=== PATIENT | female | born 1985 | race Caucasian/White ===

== ENCOUNTER 2025-01-28 14:02 | Outpatient (AMB) | payer MEDICAID, SELFPAY ==
[2025-01-28 14:27] VITALS: BP 121/79; PULSE 72; RESP 14; TEMP 36.6; O2SAT 99; BMI 32.8
--- NOTE | 2025-01-28 14:27 | AMB.OBINITIA ---
Vital Signs 01/28/25 14:27 Height 1.57 m Height Method Stated Weight 81.42 kg Weight Measurement Method Standing Scale BMI 32.8 BP 121/79 Blood Pressure Source Automatic Cuff Blood Pressure Location Left Upper Arm Position Sitting Respiration 14 Pulse 72 Pulse Source Monitor Temp 97.8 F Temp Source Oral Pulse Oximetry (%) 99 Oxygen Delivery Method Room Air Allergies/Home Meds Allergies & Medications Allergies Penicillins Allergy (Verified 01/28/25 14:28) Hives Medication Reconciliation vitamins-iron fumarate 66 mg iron-folic acid 1 mg tablet tab PO 01/28/25 [History Confirmed 01/28/25] vits no.126-ferrous fum 28 mg iron-folic acid 800 mcg tablet (Classic ) 1 tab PO DAILY 90 days #90 tabs 01/28/25 [Rx] Intake Visit Data Collection New Patient or Established: Established Patient (seen at [facility] within 3 years) Reason for Visit:: INITIAL CARE Seen by Clinical Staff ONLY (RN/MA): No Assembler Crimper Required: No Do You Feel Safe at Home: Yes Authorities Contacted: N/A PCP or OBGYN visit in last 3 months: No Hx Now: Yes Are you currently on any form of Control: No Last menstrual period: 11/21/24 Pain Present Currently: No Pain Scale Used: Piedra-Garcia/Numerical Pain scale:: 0 Smoking Status Smoking Status: Never smoker Immunizations Flu Vaccine in the Last 12 Months: Yes Flu Vaccine Exclusion Criteria: Already Received Questionnaires Covid-19 Vaccine Questionnaire Has patient been vacinated for Covid-19 Have you been vacinated for Covid-19: Yes PHQ-9 PHQ-2 Over the last 2 weeks, how often have you been bothered by any of the following problems? 1. Little interest or pleasure in doing things: not at all 2. Feeling down, depressed, or hopeless: not at all Total score: 0 PHQ-9 3. Trouble falling or staying asleep, or sleeping too much: Not at all 4. Feeling tired or having little energy: Not at all 5. Poor appetite or overeating: Not at all 6. Feeling bad about yourself - or that you are a failure or have let yourself or your family down: Not at all 7. Trouble concentrating on things, such as reading the newspaper or watching television: Not at all 8. Moving or speaking so slowly that other people could have noticed? - Or the opposite - being so fidgety or restless that you have been moving around a lot more than usual: not at all 9. Thoughts that you would be better off or of hurting yourself in some way: Not at all Total score: 0 If you checked off any problems, how difficult have these problems made it for you to do your work, take care of things at home, or get along with other people?: not difficult at all Source: Developed by Drs. Js Zhang, Leonor Phillips, Ken Gabriel and colleagues, with an educational gale from [employer]. Depression screen completed yes Social History Living Situation History Marital Status: Lives With: Family Housing: House Tobacco History Smoking Status: Never smoker Second Hand Smoke Exposure: No Alcohol History Alcohol Intake: Never Domestic Abuse History Do You Feel Safe at Home: Yes History of Present Illness HPI Narrative ?39 Years old G?3P?2at gestational age?9.5 weeks based on last menstrual period of dated?.11/21/2024 No complaints so far Here for first visit LPS 2 years ago LMP 11/21/2024/ not sure Ultrasound not yet medical problems preexisting DM for 1.5 years , last 2 months on diet only / AMA Allergies PCN Hives Surgical history Tonsils social history none OB Ultrasound OB Ultrasound Ultrasound technique: transabdominal Gestational sac assessment: Presence, location, size, shape: IUP / Seen pole c/w 9 weeks on CRL and GS but cannot see a heart beat COPY READER: Past Medical History Past Medical History: No Hx Neurological Disorders, No Hx Cardiac Disorders and Yes Hx Diabetes Mellitus Type 2 OB Initial Visit OB Flowsheet OB Flowsheet Initial Weight: Not Recorded Date <del>?</del> EGA Weight BP Alb Glu CTX Pres Fundal ht FHR Mov Dilation Station Effacement Hx Notes Visit Note 01/28/25 <del>?</del> 9w 5d 81.42 kg 121/79 Menstrual History Menstrual reliability: definite Flow: normal Menstrual regularity: regular Monthly: Yes On control pills at conception: No Associated symptoms (LMP): Reports fatigue OB History : 3 Para: 2 # of Living Children: 2 Delivery History 1st : Child's name: CHULA date: 12/20/04 sex: male Gestational age at delivery (weeks): 38 Delivery type: vaginal Delivery complications: NONE History of depression before or after : No 2nd : Child's name: YOLY date: 07/27/11 sex: male Gestational age at delivery (weeks): 40 Delivery type: vaginal Delivery complications: NONE History of depression before or after : No Infection History & Risk Evaluation History of STDs: none Genetic Screening & History Genetic Screening/Teratology Counseling - Includes patient, baby's father, or anyone in either family with: 1. Patient's age 35 years or older as of estimated date of delivery: Yes 2. Thalassemia (Armenian, Burmese, Mediterranean, or Background); MCV less than 80: No 3. Neural Tube Defect (Meningomyelocele, Spina Bifida, or Anencephaly): No 4. Congenital Heart Defect: No 5. Down Syndrome: No 6. Kodi-Sachs (Ashkenazi Samaritan, Cajun, [place]): No 7. Moe Disease (Ashkenazi Samaritan): No 8. Familial Dysautonomia (Ashkenazi Samaritan): No 9. Sickle Cell Disease or Trait (): No 10. Hemophilia or other blood disorders: No 11. Muscular Dystrophy: No 12. Cystic Fibrosis: No 13. Katy's Chorea: No 14. Mental Retardation/Autism: No 15. Other inherited genetic or chromosomal disorder: No 16. Maternal Metabolic Disorder (EG,TYPE 1 Diabetes, PKU): No 17. Patient or baby's father had a child with defects not listed above: No 18. Recurrent loss or a stillbirth: No 19. Medications (including supplements, vitamins, herbs or otc drugs)/illicit/recreational drugs/alcohol since last menstrual period: No 20. Any other: No Infection History 1. Live with someone with TB or exposed to TB: No 2. Rash or viral illness since last menstrual period: No 3. Hepatitis B,C: No Other (see comments) Source: [employer] Review of Systems Constitutional Constitutional: Reports fatigue Endocrine Endocrine: Reports fatigue Office Procedures OBC Clinic LOC & Office Proc's Nursing/Assessment Patient Status: Established Patient OB Clinic Nursing Assessment: Medication Reconciliation, Update PMH in EMR and Vital Signs OB Clinic Coordination of Care: AMA, Complex Care and Chronic Disease 1-5, Consent,records obtained, informed consent, Education Simp Pt/Fam, 1 Ins Authorization, Lab and Imaging orders, Results/Orders obtained and Staff clarify orders Special Needs: Heart tones Established Patient Charge Established Patient Point Assignment: 170 Established Patient Point Charge: EP Level 5 (160-above) Assessment & Plan Diagnosis / Problem List (1) : Status: Acute Qualifiers: Weeks of gestation: 9 weeks Qualified Code(s): Z3A.09 - 9 weeks gestation of (2) Advanced maternal age (AMA), 40 years or greater: Status: Acute (3) Pre-existing diabetes mellitus affecting in first trimester, antepartum: Status: Acute (4) Threatened : Status: Acute
== END 2025-01-28 15:11 | disposition home or self-care (01) ==
LOC: HODSOBC 14:02
PROVIDERS: PCP Family Medicine; Referring Provider Family Medicine; Supervising Provider Obstetrics & Gynecology; Visit Provider Obstetrics & Gynecology
DX: O09.521 Supervision of elderly multigravida, first trimester (principal); O09.891 Supervision of other high risk pregnancies, first trimester; O20.0 Threatened abortion; O24.811 Other pre-existing diabetes mellitus in pregnancy, first trimester; Z3A.09 9 weeks gestation of pregnancy; Z88.0 Allergy status to penicillin
CPT/HCPCS: 99215; G0463

== ENCOUNTER 2025-01-30 19:13 | Emergency (ER) | payer MEDICAID, SELFPAY ==
[2025-01-30 19:14] VITALS: BMI 31.6
[2025-01-30 19:22] VITALS: BP 158/95; PULSE 88; RESP 16; TEMP 36.8; O2SAT 98
--- NOTE | 2025-01-30 19:35 | XR_ITS ---
Examination: Complete OB ultrasound, less than 14 weeks, transabdominal Date and time of exam: January 30, 2025, 2012 hours INDICATIONS: Vaginal bleeding and pelvic pain today Technique: Obstetrical ultrasound images less than 14 weeks performed via transabdominal imaging Findings: A normal shaped single intrauterine gestation is present in the uterus. CRL 2.8 cm corresponds to 9 weeks 4 days gestational age Cardiac motion 167 bpm Subchorionic hemorrhage 21 x 19 x 16 mm Ultrasonographic survey of visible structures unremarkable. Amniotic fluid volume appears appropriate for this estimated gestational age. Right ovary 4.1 cm arterial flow Left ovary obscured by bowel gas IMPRESSION: Viable intrauterine gestation 9 weeks 4 days Recommend short-term follow-up given the subchorionic hemorrhage.
--- NOTE | 2025-01-30 19:35 | PD.EDRME ---
Rapid Medical Screening Exam [facility] Arrival date/time: 01/30/25 19:13 39F at approximately 9 weeks and with no significant PMH presents to ED with several days of pelvic pain and 1 day of vaginal spotting/bleeding. Chief Complaint: Vaginal Bleeding Vital signs: Vital Signs Temperature 98.2 F 01/30/25 19:22 Pulse Rate 88 01/30/25 19:22 Respiratory Rate 16 01/30/25 19:22 Blood Pressure 158/95 H 01/30/25 19:22 Pulse Oximetry (%) 98 01/30/25 19:22 Oxygen Delivery Method Room Air 01/30/25 19:22 Exam: Anxious Clinical Impression: miscarriage vs vaginal bleeding vs vs subchorionic hemorrhage
[2025-01-30 20:10] LABS: Basophils # (Auto) 0.1 Thou/mm3 (0.0-0.2); Basophils % (Auto) 0 % (0-2.5); Eosinophils # (Auto) 0.3 Thou/mm3 (0.0-0.5); Eosinophils % (Auto) 2 % (0-10); Hematocrit 41.2 % (36.0-46.0); Hemoglobin 13.2 g/dL (12.0-16.0); Immature Granulocytes Auto 0.06 Thou/mm3 (0.00-0.00); Lymphocytes # (Auto) 3.1 Thou/mm3 (1.0-4.8); Lymphocytes % (Auto) 23 % (10-50); Mean Corpuscular HGB Conc 32.0 g/dl (31.0-37.0); Mean Corpuscular Hemoglobin 27.0 pg (25.0-35.0); Mean Corpuscular Volume 84 fL (80-100); Monocytes # (Auto) 0.6 Thou/mm3 (0.0-0.8); Monocytes % (Auto) 5 % (0-12); Neutrophils # (Auto) 9.1 Thou/mm3 (1.8-7.7); Neutrophils % (Auto) 70 % (37-80); Nucleated Red Blood Cell # 0.00 Thou/mm3 (0.00-0.00); Nucleated Red Blood Cell % 0 /100 WBC (0); Platelet Count 281 Thou/mm3 (140-440); RDW Standard Deviation 42.9 fL (36.4-46.3); Red Blood Count 4.88 Miln/mm3 (4.00-5.20); White Blood Count 13.1 Thou/mm3 (3.6-11.0)
[2025-01-30 20:36] LABS: Alanine Aminotransferase 8 U/L (10-49); Albumin, Serum 4.8 gm/dL (3.5-5.0); Albumin/Globulin Ratio 1.6 (1.2-2.2); Alkaline Phosphatase 77 U/L (46-116); Anion Gap 12 (7-16); Aspartate Amino Transferase 12 U/L (0-34); BUN/Creatinine Ratio 12 Ratio (12-20); Bilirubin,Total 0.2 mg/dL (0.3-1.2); Blood Urea Nitrogen 11 mg/dL (9-23); Calcium 10.6 mg/dL (8.3-10.6); Calcium (Corrected) 10.6 mg/dL (8.5-10.1); Carbon Dioxide 22.8 mMol/L (20.0-31.0); Chloride 102 mMol/L (98-107); Creatinine (Component) 0.9 mg/dL (0.6-1.3); Estimated Creatinine Clearance 81.4 mL/min (>60); Globulin 3.0 gm/dL (2.3-3.5); Glucose 170 mg/dL (74-106); Osmolality,Calculated 277 (275-295); Potassium 3.7 mMol/L (3.4-5.1); Sodium 137 mMol/L (136-145); Total Protein 7.8 gm/dL (5.7-8.2); eGFR > 60 See Note
--- NOTE | 2025-01-30 21:13 | EDNOTE_ITS ---
ED OB Contraction Preg RMI/HPI General Chief complaint: Vaginal Bleeding Stated complaint: 9 WKS AND SPOTTING Arrival date/time: 01/30/25 19:13 RME / HPI RME / HPI Narrative: 01/30/25 19:13 39F at approximately 9 weeks and with no significant PMH presents to ED with several days of pelvic pain and 1 day of vaginal spotting/bleeding. Dr. 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 No fever, chills, N/V, or near syncope. PMH/PSH unremarkable. Allergies to penicillin - anaphylactic. Social history unremarkable. Related Data Home Medications ?Medication ?Instructions ?Recorded ?Confirmed vitamins-iron fumarate 66 tab PO 01/28/2504/23 mg iron-folic acid 1 mg tablet Previous Rx's ?Medication ?Instructions ?Recorded vits no.126-ferrous fum 1 tab PO DAILY 90 day s #90 tabs 01/28/25 28 mg iron-folic acid 800 mcg tablet (Classic ) Allergies Allergy/AdvReac Type Severity Reaction Status Date / Time Penicillins Allergy Hives Verified 01/30/25 19:14 Review of Systems Review of Systems Systems Reviewed: All systems reviewed, normal except as documented Past Medical History Past Medical History NEUROLOGIC: Negative Neurological Disorders CARDIAC: Negative Cardiac Disorders ENDOCRINE: Positive Diabetes Mellitus Type 2 Social History SMOKING STATUS: Never smoker SECOND HAND EXPOSURE: No ED Exam Narrative Physical exam: GENERAL APPEARANCE: alert and oriented x 4, well-developed, well-nourished, nontoxic, no acute distress VITALS: All vitals were reviewed and the pulse ox is 98% on room air, which is normal according to my interpretation. HEENT: Normocephalic, atraumatic; pupils equal, round, reactive to light; EOMI; mucous membranes pink, moist; oropharynx clear NECK: Supple LUNGS: CTABL; no wheezes, no rales, no rhonchi HEART: Regular rate, regular rhythm; normal S1, S2; no murmurs ABDOMEN: non distended; normal BS; soft, mild diffuse lower abdominal tenderness, no guarding, no peritoneal findings BACK: no CVA tenderness EXTREMITIES: atraumatic; no edema NEUROLOGIC: awake; alert and oriented x4; cranial nerves II-XII grossly intact; no focal sensory or motor deficits PSYCHIATRIC: appropriate mood and affect SKIN: warm, dry, normal color; no rashes Course Quality Measures none Orders Category Date Time Status US OB <= 14 weeks fetus Stat Exams 01/30/25 19:35 Completed ABO/RH Type Stat Lab 01/30/25 16:54 Completed Beta HCG,Quantitative Stat Lab 01/30/25 16:54 Completed CBC Stat Lab 01/30/25 16:54 Completed CMP [Comprehensive Metabolic Panel] Stat Lab 01/30/25 16:54 Completed Vital Signs Vital signs: Vital Signs Temperature 98.2 F 01/30/25 19:22 Pulse Rate 88 01/30/25 19:22 Respiratory Rate 16 01/30/25 19:22 Blood Pressure 158/95 H 01/30/25 19:22 Pulse Oximetry (%) 98 01/30/25 19:22 Oxygen Delivery Method Room Air 01/30/25 19:22 Vaginal Bleeding MDM Narrative MDM Narrative: Scribe Attestation: 01/30/25 - Vianey Decker am scribing for and in the presence of Dr. Peoples. 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 No fever, chills, N/V, or near syncope. Please see PE findings. Lab markers demonstrated marginally elevated WBC count of 13.1, normal Hgb and Plt count. Chemistries with mildly elevated Ca 10.6, otherwise, unremarkable, Beta HCG 117k. Diagnostic OB US demonstrates viable IUP 9 weeks 4 days with evidence of subchorionic hemorrhage with adequate cardiac activity at 167. Patient will be re-assured and recommendations to include pelvic rest, increase fluids, Tylenol as needed for pain, and close follow-up with LANGUAGE TEACHER. Patient data External records reviewed:: [facility] previous records (Per chart review, patient has no relevant previous ED visits.) Clinical information provided by:: patient Social determinants that could affect healthcare access:: none Patient has the following chronic illnesses:: DM How is presenting disease/condition affected by chronic disease/condition?: uneffected by Evaluation data The following diagnostics were reviewed and interpreted by me:: lab results and radiology exam(s) Lab and/or radiology exams considered but not ordered:: none Interpretation Summary: [place] [facility] Report Signed Patient: SHEILA PRESTON Record#: [id number] Birthdate: 1985 Age/Sex: 39 / F Location: [facility]X Attending Dr: Ordering Physician: Drew Woods PA-C Date of Service: 01/30/25 Procedure(s): US OB <= 14 weeks fetus Accession Number(s): [id number] cc: Bulmaro Mosley MD; Henrik Chapin MD; Drew Woods PA-C~ Examination: Complete OB ultrasound, less than 14 weeks, transabdominal Date and time of exam: January 30, 2025, 2012 hours INDICATIONS: Vaginal bleeding and pelvic pain today Technique: Obstetrical ultrasound images less than 14 weeks performed via transabdominal imaging Findings: A normal shaped single intrauterine gestation is present in the uterus. CRL 2.8 cm corresponds to 9 weeks 4 days gestational age Cardiac motion 167 bpm Subchorionic hemorrhage 21 x 19 x 16 mm Ultrasonographic survey of visible structures unremarkable. Amniotic fluid volume appears appropriate for this estimated gestational age. Right ovary 4.1 cm arterial flow Left ovary obscured by bowel gas IMPRESSION: Viable intrauterine gestation 9 weeks 4 days Recommend short-term follow-up given the subchorionic hemorrhage. Dictated By: Henrik Chapin MD Signed By: <Electronically signed by Henrik Chapin MD in OV> 01/30/252119 Medications / Prescriptions Medications or Prescriptions considered but not ordered:: none Medication administrations:: none Consultations Consultation(s) initiated? (list below): No Diagnosis Vaginal Bleeding Differential Diagnosis: missed , threatened , incomplete and vaginal bleeding Most likely diagnosis given after review of the tests above:: see clinical impression below Admission Indicated Admission indicated?: not indicated Admission Request Was there a request for admission?: No Disposition Plan Disposition Plan: Discharge Discharge Attestation Discharge Attestation: The patient and all family members were given an opportunity to ask questions and understood the discharge instructions. Discharge instructions specifically effects, indications for sooner follow up or return to the emergency department, and the expected course of current diagnosis. Patient condition: Stable Discharge Plan Plan Patient Disposition: HOME (Self Care) Discharge Disposition comment: sTABLE Prescriptions/Referrals Prescriptions/Med Rec: No Action vit-iron fum-folic ac 66 mg iron- 1 mg tablet PO Classic 28 mg iron- 800 mcg tablet 1 tab PO DAILY 90 Days Qty: 90 6RF Referrals: Bulmaro Mosley MD [Primary Care Provider, Family Practice] - In 1 week Problem List Clinical Impression: , spontaneous threatened, Subchorionic hemorrhage in first trimester Impression comment: Threatened /subchorionic hemorrhage Patient/Caregiver Discharge Instructions Other Activity Instructions:: Pelvic rest Diet Instructions: Increase fluids Education Materials: ED Possible Miscarriage ..., [facility] Subchorionic Hemorrhage Additional Instructions: Pelvic rest/follow-up with LANGUAGE TEACHER physician 1 week and return for escalating abdominal pain escalating hemorrhage approximately 1 pad per hour lightheadedness dizziness fever or general worse condition. Print Language: Vietnamese Stand Alone Forms: Radha Award Info., Patient Portal Info Letter
[2025-01-30 21:19] LABS: Beta HCG,Quantitative 117390 mIU/mL (<5.0)
--- NOTE | 2025-01-30 21:34 | PC.NURSE ---
CALLED PATIENT IN THE LOBBY NO ANSWER RECEIVED.
== END 2025-01-30 22:00 | disposition home or self-care (01) ==
PROVIDERS: Physician Assistant; Emergency Provider Emergency Medicine; PCP Family Medicine
DX: O20.0 Threatened abortion (principal); Z3A.09 9 weeks gestation of pregnancy
CPT/HCPCS: 36415; 76801; 80053; 84702; 85025; 86900; 86901; 99283

== ENCOUNTER 2025-02-07 03:47 | Emergency (ER) | payer MEDICAID, SELFPAY ==
[2025-02-07 03:48] VITALS: BP 129/85; PULSE 83; RESP 18; TEMP 36.6; O2SAT 97; BMI 32.0
--- NOTE | 2025-02-07 03:51 | XR_ITS ---
Examination: Complete OB ultrasound, less than 14 weeks, transabdominal Date and time of exam: February 07, 2025, 0452 hours INDICATIONS: Vaginal bleeding beginning yesterday Technique: Obstetrical ultrasound images less than 14 weeks performed via transabdominal imaging Findings: A normal shaped single intrauterine gestation is present in the uterus. CRL 4.1 cm corresponds to 11 weeks 0 days gestational age Adjacent subchorionic hemorrhage 30 x 11 x 20 mm Ultrasonographic survey of visible structures unremarkable. Amniotic fluid volume appears appropriate for this estimated gestational age. Right ovary 3.7 cm arterial flow 21 mm corpus luteum cyst Left ovary obscured by bowel gas IMPRESSION: Viable intrauterine gestation 11 weeks 0 days, suggest short-term follow-up given the subchorionic hemorrhage.
[2025-02-07 04:35] LABS: Basophils # (Auto) 0.1 Thou/mm3 (0.0-0.2); Basophils % (Auto) 1 % (0-2.5); Eosinophils # (Auto) 0.5 Thou/mm3 (0.0-0.5); Eosinophils % (Auto) 5 % (0-10); Hematocrit 36.4 % (36.0-46.0); Hemoglobin 11.9 g/dL (12.0-16.0); Immature Granulocytes Auto 0.05 Thou/mm3 (0.00-0.00); Lymphocytes # (Auto) 3.3 Thou/mm3 (1.0-4.8); Lymphocytes % (Auto) 32 % (10-50); Mean Corpuscular HGB Conc 32.7 g/dl (31.0-37.0); Mean Corpuscular Hemoglobin 27.2 pg (25.0-35.0); Mean Corpuscular Volume 83 fL (80-100); Monocytes # (Auto) 0.6 Thou/mm3 (0.0-0.8); Monocytes % (Auto) 6 % (0-12); Neutrophils # (Auto) 5.9 Thou/mm3 (1.8-7.7); Neutrophils % (Auto) 57 % (37-80); Nucleated Red Blood Cell # 0.00 Thou/mm3 (0.00-0.00); Nucleated Red Blood Cell % 0 /100 WBC (0); Platelet Count 262 Thou/mm3 (140-440); RDW Standard Deviation 42.5 fL (36.4-46.3); Red Blood Count 4.37 Miln/mm3 (4.00-5.20); White Blood Count 10.3 Thou/mm3 (3.6-11.0)
--- NOTE | 2025-02-07 05:40 | PD.EDRME ---
Rapid Medical Screening Exam [facility] Arrival date/time: 02/07/25 03:47 39F at approximately 11 weeks and with no significant PMH presents to ED with 1 week of intermittent vaginal spotting. Patient was here recently for this. Tonight, the bleeding got heavier and patient may have passed some tissue. Patient denies dysuria. Blood type is B+. Chief Complaint: Vaginal Bleeding Time Seen by Provider: 02/07/25 03:51 Vital signs: Vital Signs Temperature 97.9 F 02/07/25 03:48 Pulse Rate 83 02/07/25 03:48 Respiratory Rate 18 02/07/25 03:48 Blood Pressure 129/85 H 02/07/25 03:48 Pulse Oximetry (%) 97 02/07/25 03:48 Oxygen Delivery Method Room Air 02/07/25 03:48 Exam: Anxious. Clinical Impression: Miscarriage vs vs vaginal bleeding vs sbubchorionic hemorrhage
[2025-02-07 05:44] LABS: Alanine Aminotransferase < 7 U/L (10-49); Albumin, Serum 4.0 gm/dL (3.5-5.0); Albumin/Globulin Ratio 1.5 (1.2-2.2); Alkaline Phosphatase 59 U/L (46-116); Anion Gap 8 (7-16); Aspartate Amino Transferase < 10 U/L (0-34); BUN/Creatinine Ratio 15 Ratio (12-20); Bilirubin,Total 0.3 mg/dL (0.3-1.2); Blood Urea Nitrogen 12 mg/dL (9-23); Calcium 8.6 mg/dL (8.3-10.6); Calcium (Corrected) 8.6 mg/dL (8.5-10.1); Carbon Dioxide 25.1 mMol/L (20.0-31.0); Chloride 106 mMol/L (98-107); Creatinine (Component) 0.8 mg/dL (0.6-1.3); Estimated Creatinine Clearance 92.1 mL/min (>60); Globulin 2.7 gm/dL (2.3-3.5); Glucose 136 mg/dL (74-106); Osmolality,Calculated 279 (275-295); Potassium 3.8 mMol/L (3.4-5.1); Sodium 139 mMol/L (136-145); Total Protein 6.7 gm/dL (5.7-8.2); eGFR > 60 See Note
--- NOTE | 2025-02-07 06:01 | PRELIM_ITS ---
Obstetric ultrasound (transabdominal and transvaginal). February 07, 2025 at 0455 hours Clinical history: Pain/bleeding; 11 weeks. Technique: Real-time ultrasound was performed using Duplex scanning including arterial inflow, venous outflow, color and spectral Doppler analysis of right ovary. Comparison: No prior study is available for comparison. Findings: There is an intrauterine gestation with a single live fetus of mean gestational age 11 weeks (CRL= 4.1 cm). cardiac activity is present at heart rate of 162 beats per minute. Estimated due date by ultrasound is 08/18/2025. There is 3 x1.1 x 2 cm subchorionic hemorrhage adjacent to the gestational sac. The uterus measures 10.3 x 9.9 x 8.5 cm. The right ovary measures 3.7 x 2.9 x 2 cm. There is a 2.1 x 2.1 x 1.8 cm cyst in the right ovary. The left ovary is not visualized. There is no free fluid in the pelvis. Impression: Intrauterine gestation with a single live fetus of mean gestational age 11 weeks. Subchorionic hemorrhage adjacent to the gestational sac. Report Electronically Signed By: Madi Mario 02/07/2025 6:00:42 AM [EST]
--- NOTE | 2025-02-07 06:49 | PD.EDVAGBL ---
ED OB Contraction Preg RMI/HPI General Chief complaint: Vaginal Bleeding Stated complaint: VAGINAL BLEEDING, 11WEEKS Time Seen by Provider: 02/07/25 03:51 Arrival date/time: 02/07/25 03:47 RME / HPI RME / HPI Narrative: 02/07/25 03:47 39F at approximately 11 weeks and with no significant PMH presents to ED with 1 week of intermittent vaginal spotting. Patient was here recently for this. Tonight, the bleeding got heavier and patient may have passed some tissue. Patient denies dysuria. Blood type is B+. 02/07/25 06:50 Patient states she has been intermittently spotting for the past week and in the last 24 hours she has only gone through 2 pads. Denies any pelvic pain, nausea, vomiting, fever Exam: Anxious. Impression: Miscarriage vs vs vaginal bleeding vs sbubchorionic hemorrhage Related Data Home Medications ?Medication ?Instructions ?Recorded ?Confirmed vitamins-iron fumarate 66 tab PO 01/28/25 01/28/25 mg iron-folic acid 1 mg tablet Previous Rx's ?Medication ?Instructions ?Recorded vits no.126-ferrous fum 1 tab PO DAILY 90 days #90 tabs 01/28/25 28 mg iron-folic acid 800 mcg tablet (Classic ) Allergies Allergy/AdvReac Type Severity Reaction Status Date / Time Penicillins Allergy Hives Verified 01/30/25 19:14 Review of Systems Review of Systems Systems Reviewed: All systems reviewed, normal except as documented ED Exam Narrative Physical exam: Constitutional: Patient alert and oriented. Well appearing. No acute distress. Not toxic appearing. Head: Normocephalic, atraumatic. Eyes: Periorbital regions bilaterally normal to inspection. Conjunctiva clear bilaterally. Sclera anicteric bilaterally. Pupils equal, round, reactive to light bilaterally. Extraocular movements intact bilaterally. Mouth/Throat: Mucous membranes moist. No stridor or muffled voice. No trismus. Handling secretions without difficulty. Airway widely patent. Neck: Supple. Trachea midline. No JVD. No nuchal rigidity. Normal range of motion. Respiratory: Normal effort. No accessory muscle use or respiratory distress. Abdomen: Soft. Non-distended. Non-tender throughout. No pulsatile mass. No guarding or rebound. Negative Golden?s sign. Negative McBurney?s point tenderness. Negative Rovsing?s. Back: No midline tenderness or step-offs. No CVA tenderness to palpation bilaterally. Upper Extremities: No gross deformities. Lower Extremities: No gross deformities. No edema. Neuro: Speech normal. No gross motor or sensory deficits to upper or lower extremities bilaterally. GCS 15. CN II?XII grossly intact. Skin: Warm, dry, normal color. Psych: Normal affect. Cooperative. Normal insight. : Deferred Course Course Course Narrative: Spoke with the radiologist Henrik Chapin who advised that he will place an addendum regarding the pole which he appreciated was reassuring Quality Measures none Orders Category Date Time Status US OB <= 14 weeks fetus Stat Exams 02/07/25 03:51 Completed Beta HCG,Quantitative Stat Lab 02/07/25 04:25 Completed CBC Stat Lab 02/07/25 04:25 Completed CMP [Comprehensive Metabolic Panel] Stat Lab 02/07/25 04:25 Completed Vital Signs Vital signs: Vital Signs Temperature 97.9 F 02/07/25 03:48 Pulse Rate 83 02/07/25 03:48 Respiratory Rate 18 02/07/25 03:48 Blood Pressure 129/85 H 02/07/25 03:48 Pulse Oximetry (%) 97 02/07/25 03:48 Oxygen Delivery Method Room Air 02/07/25 03:48 Vaginal Bleeding MDM Narrative MDM Narrative: MDM: This patient is in the first trimester of her and after a careful history, physical exam, and evaluation, is found to be at risk of a miscarriage versus abnormal versus normal . The likelihood of an ectopic is extremely low. There are no signs of an infection at this time. The patient is instructed to follow-up with an Digital Account Supervisor within 48-72 hours for re-evaluation. The patient is warned to return to the ED if she develops significant bleeding, dizziness, syncope, or severe pain. Patient data External records reviewed:: [facility] previous records Clinical information provided by:: patient Social determinants that could affect healthcare access:: housing Patient has the following chronic illnesses:: As noted How is presenting disease/condition affected by chronic disease/condition?: uneffected by Evaluation data The following diagnostics were reviewed and interpreted by me:: lab results and radiology exam(s) Lab and/or radiology exams considered but not ordered:: Additional Labs and radiology considered, but not ordered as they were not clinically indicated at this time, immature granulocyte number minimally elevated 0.05 thousand, immature granulocyte percentage minimally elevated 1% Glucose minimally elevated 136 otherwise CBC and CMP without severe metabolic [place] [address] Ultrasound notable for a confirmed intrauterine with subchorionic hemorrhage which is a 3 x 2 cm which was reviewed by me At the time of reassessment prior to discharge, the patient remains alert and oriented ?3 with GCS 15. Vitals are normal, pain is controlled, and the patient is tolerating oral intake without nausea or vomiting. The patient is agreeable to discharge and verbalizes understanding of the diagnosis, studies, treatment plan, medications (including side effects/precautions), and strict ER return precautions as discussed in the ED. All concerns were addressed, and the patient is comfortable with the plan. Interpretation Summary: Hemoglobin minimally low 11.9, hematocrit within normal limits at 36.4% Medications / Prescriptions Medications or Prescriptions considered but not ordered:: I ordered medications based on the patient?s clinical needs and assessment, as documented in the chart. For medications not prescribed, they were not indicated for the patient's current condition, and I determined they were unnecessary at this time to avoid potential risks or complications. Medication administrations:: As noted Consultations Consultation(s) initiated? (list below): No Diagnosis Vaginal Bleeding Differential Diagnosis: missed , threatened and incomplete Most likely diagnosis given after review of the tests above:: Threatened Admission Indicated Admission indicated?: not indicated Admission Request Was there a request for admission?: No Disposition Plan Disposition Plan: Discharge Discharge Attestation Discharge Attestation: The patient and all family members were given an opportunity to ask questions and understood the discharge instructions. Discharge instructions specifically effects, indications for sooner follow up or return to the emergency department, and the expected course of current diagnosis. Patient condition: Stable Discharge Plan Plan Patient Disposition: HOME (Self Care) Patient condition on transfer: Stable Prescriptions/Referrals Prescriptions/Med Rec: No Action vit-iron fum-folic ac 66 mg iron- 1 mg tablet PO Classic 28 mg iron- 800 mcg tablet 1 tab PO DAILY 90 Days Qty: 90 6RF Referrals: Bulmaro Mosley MD [Primary Care Provider, Family Practice] - In 1 week Problem List Clinical Impression: Threatened , Subchorionic hemorrhage in first trimester Patient/Caregiver Discharge Instructions Education Materials: ED Possible Miscarriage ... Additional Instructions: Follow up with your primary medical doctor within 48 hours. Return to the Emergency Room immediately for any new, worsening, continuing symptoms or any concerns at all. Return to the Emergency Room within 48 hours if you are unable to follow up with your primary medical doctor within 48 hours. Print Language: Croatian Stand Alone Forms: Radha Award Info., Patient Portal Info Letter PA/AUTOMOTIVE REFINISH TECHNICIAN Supervising Physician PA/AUTOMOTIVE REFINISH TECHNICIAN Supervising Physician: Dr. Barnard
[2025-02-07 08:31] VITALS: BP 114/81; PULSE 80; RESP 18; TEMP 36.8; O2SAT 99
== END 2025-02-07 08:32 | disposition home or self-care (01) ==
PROVIDERS: Emergency Provider Physician Assistant; PCP Family Medicine
DX: O20.8 Other hemorrhage in early pregnancy (principal); O20.0 Threatened abortion; Z3A.11 11 weeks gestation of pregnancy
CPT/HCPCS: 36415; 76801; 80053; 84702; 85025; 99283

== ENCOUNTER 2025-02-10 10:27 | Outpatient (AMB) | payer MEDICAID, SELFPAY ==
[2025-02-10 10:48] VITALS: BP 121/85; PULSE 91; RESP 18; TEMP 36.9; O2SAT 98; BMI 33.0
--- NOTE | 2025-02-10 10:48 | AMB.OBPNC ---
Vital Signs 02/10/25 10:48 Height 1.57 m Height Method Stated Weight 81.363 kg Weight Measurement Method Standing Scale BMI 33.0 BP 121/85 H Blood Pressure Source Automatic Cuff Blood Pressure Location Left Upper Arm Position Sitting Respiration 18 Pulse 91 Pulse Source Monitor Temp 98.5 F Temp Source Oral Pulse Oximetry (%) 98 Oxygen Delivery Method Room Air Allergies/Home Meds Allergies & Medications Allergies Penicillins Allergy (Verified 02/10/25 10:52) Hives Medication Reconciliation vitamins-iron fumarate 66 mg iron-folic acid 1 mg tablet tab PO 01/28/25 [History Confirmed 02/10/25] vits no.126-ferrous fum 28 mg iron-folic acid 800 mcg tablet (Classic ) 1 tab PO DAILY 90 days #90 tabs 01/28/25 [Rx Confirmed 02/10/25] metformin 500 mg tablet 500 mg PO BID #60 tabs 02/10/25 [Rx] Immunizations Immunizations Flu Vaccine in the Last 12 Months: Yes Flu Vaccine Exclusion Criteria: Already Received Care OB Visit Log OB Flowsheet Initial Weight: Not Recorded Date <del>?</del> EGA Weight BP Alb Glu CTX Pres Fundal ht FHR Mov Dilation Station Effacement Hx Notes Visit Note 01/28/25 <del>?</del> 9w 5d 81.42 kg 121/79 02/10/25 <del>?</del> 11w 4d 81.363 kg 121/85 absent transverse 11 161 ROHINI Calculator Estimated Delivery Date Method Current WG Current Estimate 08/28/25 LMP (Certain) 11w 4d Other Estimates 08/29/25 Ultrasound #1 11w 3d Notes Visit Date: 02/10/25 Last Updated by: Selam Neal MD 39F at approximately 11 weeks and with no significant PMH presents to ED with 1 week of intermittent vaginal spotting. Patient was here recently for this. Tonight, the bleeding got heavier and patient may have passed some tissue. Patient denies dysuria. Blood type is B+. 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 Denies any pelvic pain, nausea, vomiting, fever Exam: Anxious. Impression: Miscarriage vs vs vaginal bleeding vs sbubchorionic hemorrhage Visit Date: 01/28/25 Last Updated by: Selam Neal MD 39 years at 9.5 weeks by unsure LMP/ US bedside c/w 9 weeks and no heart beat seen clearly / Plan urgent US stat and first trimester ob labs and also NIPT and also carrier screening/ TSH/ Hb A1c and telephone follow up on result of US in 1 week Office Procedures OBC Clinic LOC & Office Proc's Nursing/Assessment Patient Status: Established Patient OB Clinic Nursing Assessment: Medication Reconciliation, Update PMH in EMR and Vital Signs OB Clinic Coordination of Care: AMA, Complex Care and Chronic Disease 1-5, Consent,records obtained, informed consent, Education Simp Pt/Fam, 1 Ins Authorization, Lab and Imaging orders, Results/Orders obtained and Staff clarify orders Special Needs: Heart tones Established Patient Charge Established Patient Point Assignment: 170 Established Patient Point Charge: EP Level 5 (160-above) Assessment & Plan Diagnosis / Problem List (1) Subchorionic hemorrhage in first trimester: Status: Acute (2) Pre-existing diabetes mellitus affecting in first trimester, antepartum: Status: Acute Plan: HbA1c at 6.7/she would not like to start the metformin and try eating better / fasting is 100 to 120 / will keep sugar log and diet restrictions and if Fasting is not improved will start on metfomin 500 mgm po BID (3) Advanced maternal age (AMA), 40 years or greater: Status: Acute Plan: refer for genetic counselling and anatomy scan Additional Assessment [facility] [address] [place] [address] [facility] Report Signed with Kush [facility] Record#: [id number] Birthdate: 1985 Age/Sex: 39 / F Location: [facility] Attending Dr: Ordering Physician: Drew Woods PA-C Date of Service: 02/07/25 Procedure(s): US OB <= 14 weeks fetus Accession Number(s): [id number] cc: Bulmaro Mosley MD; Henrik Chapin MD; Drew Woods PA-C~ ADDENDUM ADDENDUM #1 Addendum: Cardiac motion 162 bpm ORIGINAL REPORT Examination: Complete OB ultrasound, less than 14 weeks, transabdominal Date and time of exam: February 07, 2025, 0452 hours INDICATIONS: Vaginal bleeding beginning yesterday Technique: Obstetrical ultrasound images less than 14 weeks performed via transabdominal imaging Findings: A normal shaped single intrauterine gestation is present in the uterus. CRL 4.1 cm corresponds to 11 weeks 0 days gestational age Adjacent subchorionic hemorrhage 30 x 11 x 20 mm Ultrasonographic survey of visible structures unremarkable. Amniotic fluid volume appears appropriate for this estimated gestational age. Right ovary 3.7 cm arterial flow 21 mm corpus luteum cyst Left ovary obscured by bowel gas IMPRESSION: Viable intrauterine gestation 11 weeks 0 days, suggest short-term follow-up given the subchorionic hemorrhage. Addendum Dictated By: Henrik Chapin MD Addendum Signed By: <Electronically signed by Henrik Chapin MD in OV> 02/07/25702 Addendum Cosigned By: DD/ /20/702 TD/TT: 02/07/2502/20/702 Examination: Complete OB ultrasound, less than 14 weeks, transabdominal Date and time of exam: February 07, 2025, 0452 hours INDICATIONS: Vaginal bleeding beginning yesterday Technique: Obstetrical ultrasound images less than 14 weeks performed via transabdominal imaging Findings: A normal shaped single intrauterine gestation is present in the uterus. CRL 4.1 cm corresponds to 11 weeks 0 days gestational age Adjacent subchorionic hemorrhage 30 x 11 x 20 mm Ultrasonographic survey of visible structures unremarkable. Amniotic fluid volume appears appropriate for this estimated gestational age. Right ovary 3.7 cm arterial flow 21 mm corpus luteum cyst Left ovary obscured by bowel gas IMPRESSION: Viable intrauterine gestation 11 weeks 0 days, suggest short-term follow-up given the subchorionic hemorrhage. Additional Plan Follow Up: 4 Weeks
== END 2025-02-10 11:27 | disposition home or self-care (01) ==
LOC: HODSOBC 10:27
PROVIDERS: PCP Family Medicine; Referring Provider Family Medicine; Supervising Provider Obstetrics & Gynecology; Visit Provider Obstetrics & Gynecology
DX: O09.891 Supervision of other high risk pregnancies, first trimester (principal); O09.521 Supervision of elderly multigravida, first trimester; Z3A.11 11 weeks gestation of pregnancy; O20.8 Other hemorrhage in early pregnancy; O24.111 Pre-existing type 2 diabetes mellitus, in pregnancy, first trimester; Z79.84 Long term (current) use of oral hypoglycemic drugs; Z88.0 Allergy status to penicillin
CPT/HCPCS: 99215; G0463